=== PATIENT | female | born 1985 | race Caucasian/White ===

== ENCOUNTER 2018-07-23 15:58 | Inpatient (IN) | payer OTHER ==
[~2018-07-23] VITALS: Ht 154.9 cm; Wt 71.7 kg
[~2018-07-23 15:58] MED LIST: DSS100 PO; FERR-72 PO; IBUP-2070 PO; PREN1TAB80 PO
[2018-07-23 16:20] VITALS: BP 120/75
[2018-07-23] MEDS ORDERED: RINGERS SOLUTION,LACTATED 500 ML IV SCH (17:45)
[2018-07-23] MEDS: BETAMETHASONE SOLUSPAN 6 MG/ML 5 ML VIAL IM SCH (18:20)
[2018-07-23] MEDS ORDERED: RINGERS SOLUTION,LACTATED 1,000 ML IV ONE ×2 (19:43→22:47)
[2018-07-23] MEDS ORDERED: DINOPROSTONE 10 MG VAGINAL SUPPOSITORY VG ONE (19:45)
[2018-07-23] MEDS: RINGERS SOLUTION,LACTATED 1,000 ML IV SCH (19:53)
[2018-07-24 01:13] LABS: BASOPHILS % (AUTO) 0.3 % (0.0-2.0); EOSINOPHILS % (AUTO) 0.2 % (1.0-6.0); HEMATOCRIT 38.7 % (36-46); HEMOGLOBIN 13.3 g/dL (12.0-16.0); LYMPHOCYTES # (AUTO) 0.9 K/uL (1.0-4.8); LYMPHOCYTES % (AUTO) 13.1 % (22.0-44.0); MEAN CORPUSCULAR HEMOGLOBIN 32.4 pg (26.0-34.0); MEAN CORPUSCULAR HGB CONC 34.4 G/dL (31.0-37.0); MEAN CORPUSCULAR VOLUME 94 fL (80-100); MONOCYTES # (AUTO) 0.2 K/uL (0.1-1.0); MONOCYTES % (AUTO) 2.2 % (2.0-9.0); NEUTROPHILS % (AUTO) 84.2 % (40.0-70.0); PLATELET COUNT (AUTO)-OB 306 K/uL (150-450); RED BLOOD CELL COUNT(AUTO) 4.11 MIL/uL (4.00-5.20); RED CELL DISTRIBUTION WIDTH 12.8 % (11.5-14.5)
[2018-07-24 01:22] LABS: ANION GAP 13 mmol/L (8-16); CARBON DIOXIDE 21 mmol/L (22-29); CHLORIDE 104 mmol/L (98-107); CREATININE 0.59 mg/dL (0.60-1.30); GLOMERULAR FILTR. RATE CALC > 60 mL/min (>60); GLUCOSE,RANDOM 133 mg/dL (70-110); POTASSIUM 4.1 mmol/L (3.5-5.1); SODIUM SERUM 138 mmol/L (136-145); UREA NITROGEN, BLOOD 7 mg/dL (7-18)
[2018-07-24 01:28] LABS: ALANINE AMINOTRANSFERASE 21 U/L (12-78); ALBUMIN 2.4 g/dL (3.4-5.0); ALKALINE PHOSPHATASE 276 U/L (46-116); ASPARTATE AMINOTRANSFERASE 19 U/L (15-37); BILIRUBIN,TOTAL 0.2 mg/dL (0.1-1.0); TOTAL PROTEIN, SERUM 6.7 g/dL (6.4-8.2); URIC ACID 5.1 mg/dL (2.6-7.2)
[2018-07-24] MEDS: RINGERS SOLUTION,LACTATED 1,000 ML IV SCH ×5 (01:45→18:04)
[2018-07-24] MEDS: BETAMETHASONE SOLUSPAN 6 MG/ML 5 ML VIAL IM SCH (06:17)
[2018-07-24] MEDS ORDERED: RINGERS SOLUTION,LACTATED 1,000 ML IV PRN (11:07)
[2018-07-24] MEDS ORDERED: CITRIC ACID/SODIUM CITRATE 30 ML SOLUTION UDCUP PO PRN (11:15)
[2018-07-24] MEDS ORDERED: METOCLOPRAMIDE HCL 5 MG/ML 2 ML VIAL IVP PRN (11:15)
[2018-07-24] MEDS ORDERED: DINOPROSTONE 10 MG VAGINAL SUPPOSITORY VG ONE (11:15)
[2018-07-24] MEDS ORDERED: OXYGEN THERAPY IH SCH (11:15)
[2018-07-24] MEDS ORDERED: ROPIVACAINE HCL/PF 0.2% 100 ML ED ONE (16:49)
[2018-07-24] MEDS ORDERED: LIDOCAINE/PF 2% 5 ML VIAL ONE (16:49)
[2018-07-24] MEDS ORDERED: DiphenhydrAMINE HCL 50 MG/ML VIAL IVP PRN (17:15)
[2018-07-24] MEDS ORDERED: ROPIVACAINE HCL/PF 0.2% 100 ML ED PRN ×2 (17:15)
[2018-07-24] MEDS ORDERED: NALBUPHINE HCL 10 MG/ML VIAL IVP PRN (17:15)
[2018-07-24] MEDS ORDERED: ONDANSETRON HCL 4 MG/2 ML VIAL IVP PRN (17:15)
[2018-07-24] MEDS ORDERED: TERBUTALINE SULFATE 1 MG/ML VIAL SQ ONE (18:15)
[2018-07-24] MEDS ORDERED: MINERAL OIL 30 ML UDCUP ONE (18:52)
[2018-07-24] MEDS ORDERED: OXYTOCIN 30 UNITS/LACT RINGERS 500 ML IV ONE ×3 (19:17→20:00)
[2018-07-24] MEDS ORDERED: LIDOCAINE/PF 1% 30 ML VIAL INJ PRN (19:30)
[2018-07-24] MEDS ORDERED: MAGNESIUM HYDROXIDE SUSPENSION 30 ML UDCUP PO PRN (19:30)
[2018-07-24] MEDS ORDERED: OxyCODONE HCL/ACETAMINOPHEN 5-325 MG TABLET PO PRN ×2 (19:30)
[2018-07-24] MEDS ORDERED: LANOLIN 7 GM OINTMENT TP PRN (19:30)
[2018-07-24] MEDS ORDERED: GLYCERIN/WITCH HAZEL LEAF 40 PADS JAR TP PRN (19:30)
[2018-07-24] MEDS ORDERED: BENZOCAINE 20%/MENTHOL 56 GM SPRAY CANISTER TP PRN (19:30)
[2018-07-24] MEDS ORDERED: -PHARMACY NOTE- MISC ONE (23:15)
[2018-07-25] MEDS: IBUPROFEN 800 MG TABLET PO PRN ×2 (00:14→07:44)
[2018-07-25 06:46] LABS: BASOPHILS % (AUTO) 0.1 % (0.0-2.0); EOSINOPHILS % (AUTO) 0.1 % (1.0-6.0); HEMATOCRIT 32.3 % (36-46); HEMOGLOBIN 11.6 g/dL (12.0-16.0); LYMPHOCYTES # (AUTO) 1.4 K/uL (1.0-4.8); LYMPHOCYTES % (AUTO) 12.4 % (22.0-44.0); MEAN CORPUSCULAR HEMOGLOBIN 33.5 pg (26.0-34.0); MEAN CORPUSCULAR VOLUME 93 fL (80-100); MONOCYTES # (AUTO) 0.7 K/uL (0.1-1.0); MONOCYTES % (AUTO) 6.7 % (2.0-9.0); NEUTROPHILS # (AUTO) 8.9 K/uL (1.8-7.7); NEUTROPHILS % (AUTO) 80.7 % (40.0-70.0); PLATELET COUNT (AUTO)-OB 278 K/uL (150-450); RED BLOOD CELL COUNT(AUTO) 3.47 MIL/uL (4.00-5.20); RED CELL DISTRIBUTION WIDTH 12.6 % (11.5-14.5)
[2018-07-25] MEDS ORDERED: IBUP-2071 PO (17:34)
[2018-07-25] MEDS ORDERED: DSS100 PO (17:34)
== END 2018-07-25 21:20 | disposition home or self-care (01) | DRG 807 ==
LOC: OBSVTOIN 15:58 → INTOOBSV 15:58 → 4S 15:58
PROVIDERS: ADMIT Obstetrics & Gynecology; ATTEND Obstetrics & Gynecology
PROC: 3E02340 Introduction of Influenza Vaccine into Muscle, Percutaneous Approach (ICD-10-PCS; 2018-07-23)
PROC: 10907ZC Drainage of Amniotic Fluid, Therapeutic from Products of Conception, Via Natural or Artificial Opening (ICD-10-PCS; principal; 2018-07-24)
PROC: 10E0XZZ Delivery of Products of Conception, External Approach (ICD-10-PCS; 2018-07-24)
PROC: 3E0R3BZ Introduction of Anesthetic Agent into Spinal Canal, Percutaneous Approach (ICD-10-PCS; 2018-07-24)
PROC: 00HU33Z Insertion of Infusion Device into Spinal Canal, Percutaneous Approach (ICD-10-PCS; 2018-07-24)
DX: O80 Encounter for full-term uncomplicated delivery (principal); Z37.0 Single live birth; Z3A.37 37 weeks gestation of pregnancy; Z23 Encounter for immunization
CPT/HCPCS: 76805; 84550; 86850; 86900; 86901; 90686; J0702; J2765; J2795; J3490; J7120